=== PATIENT | female | born 1980 | race Two or more races ===

== ENCOUNTER 2022-10-27 02:40 | Emergency (ER) | payer OTHER ==
[~2022-10-27] VITALS: Ht 144.8 cm; Wt 88.9 kg
--- NOTE | 2022-10-27 05:40 | NUR ---
BIBS FOR DRY COUGH X 1 WEEK. PT IS AOX4. ABLE TO MAKE NEEDS KNOWN. PLACED COMFORTABLY IN BED
--- NOTE | 2022-10-27 06:26 | NUR ---
SEEN BY DR WISE AT BEDSIDE
[2022-10-27] MEDS ORDERED: BENZ-13 PO (06:54)
[2022-10-27] MEDS ORDERED: IBUP-1955 PO (06:54)
--- NOTE | 2022-10-27 07:06 | NUR ---
Patient discharged to home in stable condition. Written and verbal after care instructions given. Patient verbalizes understanding of instruction.
--- NOTE | 2022-10-27 07:06 | NUR ---
COVID SWAB DONE AND SENT TO LAB
[2022-10-27 07:08] VITALS: BP 136/71
== END 2022-10-27 07:08 | disposition home or self-care (01) ==
LOC: ER 02:48
DX: J06.9 Acute upper respiratory infection, unspecified (principal); R09.81 Nasal congestion; R05.9 Cough, unspecified; Z20.822 Contact with and (suspected) exposure to COVID-19
CPT/HCPCS: 99283; 87426; C9803